=== PATIENT | female | born 1960 | race Hispanic/Latino ===

== ENCOUNTER 2016-07-13 14:51 | Inpatient (IN) ==
[2016-07-13] MEDS ORDERED: ASPIRIN PO STA ×2 (15:00→15:09)
[2016-07-13 15:17] LABS: MANUAL DIFF NEEDED? NO
[2016-07-13] MEDS ORDERED: ASPIRIN ONE (15:18)
[2016-07-13 15:21] LABS: BASO% 0.2 % (0.0-0.8); EOS% 2.1 % (0.0-10.0); HEMATOCRIT 35.4 % (37.0-47.0); HEMOGLOBIN 11.7 g/dL (12.0-16.0); IMM GRAN# 0.01 X1000 (0.0-0.04); IMM GRAN% 0.1 % (0.0-0.5); LYMPH# 2.72 X1000 (1.2-3.4); LYMPH% 29.2 % (20.5-51.1); MCHC 33.1 g/dL (33-37); MCV 84.7 FL (81-99); MONO# 0.71 X1000 (0.11-0.59); MONO% 7.6 % (1.7-9.3); MPV 9.3 FL (7.4-10.4); NEUT% 60.8 % (42.2-75.2); PLT 352 X1000 (130-400); RBC 4.18 XMIL (4.2-5.4)
[2016-07-13 15:39] LABS: AGAP 12; ALBUMIN 3.7 g/dL (3.5-5.0); ALKALINE PHOSPHATASE 61 U/L (32-104); BUN 10 mg/dL (8-22); CALCIUM 8.8 mg/dL (8.8-10.2); CHLORIDE 103 mmol/L (98-107); COSMO 272; GOT 15 U/L (10-30); GPT 11 U/L (10-36); POTASSIUM 3.8 mmol/L (3.5-5.1); SODIUM 137 mmol/L (136-145); TCO2 22 mmol/L (25-35); TOTAL PROTEIN 6.9 g/dL (6.3-8.3)
--- NOTE | 2016-07-13 15:41 | Diag Imaging Result Document ---
PROCEDURE NAME: CHEST-2 VIEWS - 07/13/2016 CHEST X-RAY, 2 VIEWS: COMPARISON: 07/26/2014. FINDINGS: The lungs are normally expanded and clear. Heart size and mediastinal contours are normal. No pneumothorax or pleural effusion. IMPRESSION: Negative exam.
--- NOTE | 2016-07-13 15:41 | EKG Report ---
Test Performed on : 07/13/2016 2:52:58 PM Test Reason : CP Blood Pressure : / mmHG Vent. Rate : 076 BPM Atrial Rate : 076 BPM P-R Int : 136 ms QRS Dur : 078 ms QT Int : 378 ms P-R-T Axes : 048 069 040 degrees QTc Int : 425 ms Normal sinus rhythm. Normal ECG No previous ECGs available Unconfirmed Result
[2016-07-13 15:54] LABS: INR 0.96 (0.86-1.15); PROTIME 13.1 Seconds (12.1-15.5)
[2016-07-13 15:55] LABS: PTT PL 28.1 Seconds (22.6-43.9)
--- NOTE | 2016-07-13 17:00 | ED EKG INTERP ---
This chart was entered by Jeimy De Jesus Scribe, acting as scribe for Mark Ramos MD. EKG Interpretation - EKG Time of EKG reading by physician:: 14:52 EKG Read and Signed by:: Mark Ramos EKG Interpretation (*Must complete 3 of following elements*): Normal Rate: 76 Rhythm: normal sinus rhythm [place]: normal QRS: normal This chart was documented by the indicated scribe, (Jeimy De Jesus Scribe) and accurately reflects the services I performed and decisions made by me, Mark Ramos MD, as attested by the provider's signature.
--- NOTE | 2016-07-13 17:23 | EKG Report ---
Test Performed on : 07/13/2016 5:09:46 PM Test Reason : pain Blood Pressure : / mmHG Vent. Rate : 066 BPM Atrial Rate : 066 BPM P-R Int : 142 ms QRS Dur : 082 ms QT Int : 428 ms P-R-T Axes : 063 087 072 degrees QTc Int : 448 ms Normal sinus rhythm. Normal ECG When compared with ECG of 13-JUL-2016 14:52, (Unconfirmed) No significant change was found Unconfirmed Result
[2016-07-13] MEDS ORDERED: ZOFRAN IV PRN (19:24)
[2016-07-13] MEDS ORDERED: TYLENOL PO PRN (19:24)
[2016-07-13] MEDS: MORPHINE IV PRN ×2 (19:50→23:16)
[2016-07-14] MEDS: MORPHINE IV PRN ×3 (05:30→15:37)
[2016-07-14 13:04] LABS: HEMATOCRIT 39.1 % (37.0-47.0); HEMOGLOBIN 12.4 g/dL (12.0-16.0); MCH 27.1 PG (27-31); MCHC 31.7 g/dL (33-37); MCV 85.6 FL (81-99); MPV 9.4 FL (7.4-10.4); RBC 4.57 XMIL (4.2-5.4)
[2016-07-14 13:34] LABS: AGAP 9; ALBUMIN 4.1 g/dL (3.5-5.0); ALKALINE PHOSPHATASE 72 U/L (32-104); BUN 11 mg/dL (8-22); CALCIUM 9.4 mg/dL (8.8-10.2); CHLORIDE 99 mmol/L (98-107); COSMO 271; GOT 14 U/L (10-30); GPT 11 U/L (10-36); POTASSIUM 4.3 mmol/L (3.5-5.1); SODIUM 136 mmol/L (136-145); TCO2 28 mmol/L (25-35); TOTAL PROTEIN 7.1 g/dL (6.3-8.3)
--- NOTE | 2016-07-14 16:58 | Diag Imaging Result Document ---
PROCEDURE NAME: SHOULDER-LEFT - 07/14/2016 LEFT SHOULDER 2 VIEWS: COMPARISON: None. FINDINGS: The glenohumeral joint is intact and normally situated. There is mild hypertrophic degeneration of the acromioclavicular joint. No fracture or dislocation. IMPRESSION: Acromioclavicular joint degeneration. No acute disease.
--- NOTE | 2016-07-14 18:32 | HISTORY AND PHYSICAL ---
CHIEF COMPLAINT: Left-sided chest pain and back pain. HISTORY OF PRESENT ILLNESS: This is a 56-year-old female who presented to the emergency room complaining of left-sided chest pain that radiated through to her back along with neck pain. She described this pain as a dull, aching type pain that increases on movement of the left arm, particularly moving the shoulder area. When asked to point to the area pain, she does point to the left upper chest and axillary area, straight through to the back, as well as the upper shoulder into the neck. With movement of the shoulder the pain is increased and once still the pain does decrease somewhat. She denies any injury, any shortness of breath, any syncope, palpitations. Troponins have been negative and her EKG reveals sinus rhythm at a rate of 66. In review of her past records, she did have an echocardiogram performed in March of 2016 which revealed normal LV systolic function with an estimated EF of 65% with normal wall motion. Normal RV size and systolic function. Trace pulmonic insufficiency. No mitral prolapse. Trace mitral regurgitation. Normal LV size. Aortic valve opens well with no evidence of stenosis or insufficiency. No pericardial effusion. PAST MEDICAL HISTORY: Diabetes mellitus, gastroesophageal reflux disease, hyperlipidemia, hypertension, and hypothyroid. PAST SURGICAL HISTORY: Hysterectomy. SOCIAL HISTORY: She denies alcohol, tobacco, or illicit drug use. ALLERGIES: No known drug allergies. HOME MEDICATIONS: Lisinopril hydrochlorothiazide 20/12.5 daily, Synthroid 50 mcg daily, gabapentin 300 t.i.d., aspirin 81 mg daily, Prilosec 40 mg q.a.m., metformin 500 b.i.d., and lovastatin 20 at bedtime. REVIEW OF SYSTEMS: A 14 point review of systems is discussed with patient with pertinent positives stated in the HPI. She denied palpitations, syncope, dizziness, shortness of breath, cough, fever, chills, orthopnea, PND, nausea, vomiting, diarrhea, constipation, black or bloody vomitus, black or bloody stools, hematuria, dysuria, frequency, urgency, injuries, falls. DIAGNOSTICS: WBC is 9.3 with a hemoglobin of 11.7, hematocrit 35.4, platelets of 352,000. Sodium is 137, potassium 3.8, BUN 10, creatinine 0.8, with a glucose of 80. Troponins are negative on multiple occasions. Chest x-ray revealed a negative exam. Lungs are expanded and clear. No pneumothorax. No pleural effusion. EKG revealed sinus rhythm at a rate of [address]-T changes. ASSESSMENT AND PLAN: 1. Chest pain. The patient points to her left shoulder and axillary area as primary location of pain. This is exacerbated with movement. It does decrease when still. She denies any injury, any recent lifting or strain. This does not appear to be cardiac. Troponins have been negative. We will continue to trend. 2. Left shoulder pain. As stated above, we will x-ray her shoulder. If x-ray is negative then she will be able to follow up with her primary care physician for further evaluation. 3. Diabetes mellitus. We will identify and continue her home medications. 4. Gastroesophageal reflux disease. We will identify her home medications. 5. Hypertension. Once again, we will continue her home medications and continue as appropriate. 6. Hypothyroid. We will obtain a TSH and continue her home medications. Further treatments pending hospital course. Dictated by LELAND Lazar for Edinson Craft MD cc: LELAND Lazar MD
[2016-07-14 20:06] VITALS: BP 135/79
--- NOTE | 2016-07-14 22:10 | DISCHARGE SUMMARY ---
ADMISSION DATE: 07/13/2016 DISCHARGE DATE: 07/14/2016 DISCHARGE DIAGNOSES: 1. Chest pain. 2. Hypertension. 3. Hypothyroidism. 4. Diabetes. 5. High cholesterol. CONSULTATIONS: None. PROCEDURE: HOSPITAL COURSE: Patient is a 56-year-old female who is admitted as noted on the HPI. She was admitted, treated in usual fashion. Ruled out for an [place]. She had no further symptoms. She was able to ambulate without any difficulty. DISPOSITION: The patient will be discharged home. She will need to follow up outpatient with primary care of her choice to schedule an outpatient stress test and further cardiac workup. She certainly does not need to stay in the hospital currently for this as all of her labs so far have been negative and her chest pain appears improved. TIME SPENT: Thirty-four minutes was spent in discharge planning. cc: Edinson Craft MD
--- NOTE | 2016-07-19 17:52 | PROVIDER DOCUMENTATION ---
This chart was entered by Jeimy De Jesus Scribe, acting as scribe for Mark Ramos MD. HPI-Chest Pain - General Chief Complaint: Chest Pain Stated Complaint: CHEST PAIN Time Seen by Provider: 07/13/16 15:50 Source: patient Allergies/Adverse Reactions: Patient Allergies Allergy/AdvReac Type Severity Reaction Status Date / Time No Known Allergies Allergy Verified 11/27/15 11:25 Home Medications: Home Medication List Medication Instructions Recorded Confirmed Last Taken Type Aspirin 81 mg PO QAM 02/25/12 07/13/16 11/27/15 08:00 History 81 MG Metformin [Glucophage] 500 mg PO BID 02/25/12 07/13/16 11/27/15 08:00 History 500 MG Gabapentin 300 mg PO TID 07/26/14 07/13/16 11/27/15 08:00 History 300 MG Levothyroxine [Synthroid] 50 microgm PO QAM 11/27/15 07/13/16 11/26/15 08:00 History 50 mcg Lisinopril/Hydrochlorothiazide 1 each PO QAM 11/27/15 07/13/16 11/27/15 08:00 History [Lisinopril-Hctz 20-12.5 mg Tab] 1 po Lovastatin 20 mg PO QHS 11/27/15 07/13/16 11/26/15 20:00 History 20 mg Omeprazole [Prilosec] 40 mg PO QAM 11/27/15 07/13/16 11/27/15 08:00 History 40 MG Sulfamethoxazole/Trimethoprim 1 each PO BID #6 tablet 11/27/15 07/13/16 Unknown Rx [Bactrim Ds Tablet] - History of Present Illness-CP Nature of Presenting Problem: 56 year old Thai speaking female that presents to the ER with complaint of chest pain. Pt states her pain starts in her left rib cage and radiates through her left shoulder up into her jaw. Pt also states that her left arm and bilateral legs are weak. Pt denies N/V/D and fever. Location: reports: shoulder, abdomen Onset/Duration: this morning Timing: still present Review of Systems - Adult - REVIEW OF SYSTEMS - ADULT Constitutional: denies: chills, fever Eyes: reports: no symptoms reported Ears, Nose, Mouth & Throat: reports: no symptoms reported Cardiovascular: reports: chest pain. denies: palpitations Respiratory: reports: no symptoms reported Gastrointestinal: reports: no symptoms reported Genitourinary: reports: no symptoms reported Musculoskeletal: reports: muscle weakness (LUE, BLE) Integumentary: reports: no symptoms reported Neurological: reports: no symptoms reported Psychiatric: reports: no symptoms reported Endocrine: reports: no symptoms reported Hematologic/Lymphatic: reports: no symptoms reported Allergic/Immunologic: reports: no symptoms reported All Other Systems: Reviewed and Negative Past History - Adult - PAST MEDICAL HISTORY-ADULT Review of Records: reports: Nursing Assessment Review, Medications Reviewed Major Childhood Illnesses: reports: denies history Cardiovascular: reports: HTN, hyperlipidemia Respiratory: reports: tuberculosis Gastrointestinal: reports: denies history Genitourinary: reports: denies history Musculoskeletal: reports: chronic pain, orthopedic injury Neurological: reports: denies history Psychiatric: reports: denies history Endocrine/Immune: reports: Diabetes - PRIOR SURGERIES/PROCEDURES Surgical/Procedure History: reports: hysterectomy - IMMUNIZATION STATUS Childhood Immunizations: See Nurse Assessment Flu Vaccine: See Nurse Assessment - FAMILY HISTORY Family History: reviewed, not pertinent Physical Exam-General - CONSTITUTIONAL General Appearance: alert, no apparent distress - EYES Eyes: PERRL/EOMI, pink conjunctivae - HEAD, EARS, NOSE, MOUTH & THROAT HENMT: normocephalic/atraumatic, moist mucous membranes - NECK Neck: non-tender, full range of motion - RESPIRATORY Respiratory: lungs clear, normal breath sounds - CARDIOVASCULAR Cardiovascular: normal peripheral pulses, regular rate, rhythm - MUSCULOSKELETAL Back Exam: no CVA tenderness, no vertebral tenderness Extremity: normal range of motion, normal inspection - SKIN Integumentary: normal color, warm/dry - NEUROLOGIC Neurologic: grossly normal, no motor/sensory deficits - PSYCHIATRIC Psych/Mental Status: normal mood/affect, normal thought content, normal thought process, oriented x 3 Progress - PLAN OF CARE/RESULTS Progress/Plan/Lab Results: Orders Category Date Time Status Admit - [facility] Routine AdmDCTranf 07/13/16 19:24 Ordered Activity - Strict Bedrest ORDERED Care 07/13/16 19:24 Active Cardiac Monitoring DIRECTED Care 07/13/16 15:00 Inactive Cardiac Monitoring DIRECTED Care 07/13/16 15:01 Inactive Oxygen Therapy- ED Nursing DIRECTED Care 07/13/16 15:01 Inactive Saline Loc DIRECTED Care 07/13/16 19:24 Active Saline Loc NOW Care 07/13/16 15:00 Inactive Saline Loc NOW Care 07/13/16 15:01 Inactive Vital Signs Order ARRIVAL TO ROOM Care 07/13/16 19:24 Active Diabetic Diet Diet 07/13/16 19:25 Completed Heart Healthy Diet Diet 07/13/16 19:25 Completed CHEST-2 VIEWS [RAD] Stat Exams 07/13/16 15:10 Completed CBC WITH ELECTRONIC DIFF [HEME] Stat Lab 07/13/16 15:10 Completed CK PROFILE [SP CHEM] Stat Lab 07/13/16 15:10 Completed CK PROFILE [SP CHEM] Stat Lab 07/13/16 17:50 Completed COMPREHENSIVE METABOLIC PANEL [CHEM] Stat Lab 07/13/16 15:10 Completed MAGNESIUM [CHEM] Stat Lab 07/13/16 15:10 Completed PRO B-NATRIURETIC PEPTIDE Stat Lab 07/13/16 15:10 Completed [address]IME WITH INR PL [COAG] Routine Lab 07/13/16 15:[address] [COAG] Routine Lab 07/13/16 15:10 Completed TROPONIN T Stat Lab 07/13/16 15:10 Completed TROPONIN T Stat Lab 07/13/16 17:50 Completed Acetaminophen [Tylenol] Med 07/13/16 19:24 Discontinued 650 mg PO Q6H PRN PRN Aspirin Med 07/13/16 15:00 Discontinued 325 mg PO STAT STA Aspirin Med 07/13/16 15:09 Discontinued 325 mg PO STAT STA Aspirin Med 07/13/16 15:18 Discontinued 81 mg .ROUTE .STK-MED ONE Morphine Med 07/13/16 19:24 Discontinued 2 mg IV Q2H PRN PRN Ondansetron [Zofran] Med 07/13/16 19:24 Discontinued 4 mg IV Q4H PRN PRN Oxygen Device Routine Oth 07/13/16 19:25 Completed Telemetry [OM.EQ] Routine Oth 07/13/16 19:24 Active EKG [EKG] AC + HS PRN Ther 07/13/16 17:04 Draft EKG [EKG] Stat Ther 07/13/16 15:09 Draft Transfer/Admit Order [TRANSFER] Routine Transfer 07/13/16 19:26 Completed Result Diagrams: 07/14/16 12:30 07/14/16 12:30 - EKG 2 Time of EKG reading by physician:: 17:09 EKG Read and Signed by:: Mark Ramos EKG Interpretation (*Must complete 3 of following elements*): Normal Rate: 66 Rhythm: normal sinus rhythm [place]: normal QRS: normal - CHANGE OF SHIFT REPORT (ED Provider) Report Given and Care Transferred to:: Dr. Rider Time of Transfer: 17:52 Items Pending: Labs Departure - Departure Time of Disposition Decision: 20:00 DIAGNOSIS: Chest pain Disposition: ADMITTED INPATIENT 09 Certified Medical Emergency: Emergent Condition: Stable This chart was documented by the indicated scribe, (Jeimy De Jesus, Scribe) and accurately reflects the services I performed and decisions made by me, Mark Ramos MD, as attested by the provider's signature.
== END 2016-07-14 21:24 | disposition home or self-care (01) ==
LOC: P.ED 14:51 → P.MEDSURG 19:41 → SUATTDRO 19:41
PROVIDERS: ATTEND Family Medicine